=== PATIENT | male | born 1990 | race Two or more races ===

== ENCOUNTER → 2017-06-11 | Outpatient (CLI) | payer OTHER | END | disposition home or self-care (01) | LOC: PPH VACUNA 17:34 | DX: Z23 Encounter for immunization (principal) ==

== ENCOUNTER 2018-03-12 11:12 | Outpatient (CLI) | payer OTHER | END 2018-03-12 11:30 | disposition home or self-care (01) | LOC: RAD 501 11:12 | DX: M54.5 Low back pain (principal) ==